=== PATIENT | male | born 1950 | race Caucasian/White ===

== ENCOUNTER 2020-10-26 10:02 | Inpatient (IN) | payer OTHER, SELFPAY ==
[~2020-10-26] VITALS: Ht 190.5 cm; Wt 83.9 kg
[2020-10-26 10:07] VITALS: BP_SYST 140; BP_SYST 155
[2020-10-26] MEDS ORDERED: NACL 0.9% 1,000 ML IV ONE (10:30)
[2020-10-26] MEDS ORDERED: MORPHINE 4 MG INJ. 4 MG/ML VIAL IVP ONE (10:30)
[2020-10-26 10:46] LABS: BASOPHILS % (AUTO) 0.4 % (0.0-2.0); EOSINOPHILS % (AUTO) 0.5 % (0.0-4.0); HEMATOCRIT 40.8 % (36-54); HEMOGLOBIN 14.3 g/dL (14.0-18.0); LYMPHOCYTES # (AUTO) 0.8 K/uL (1.0-5.5); LYMPHOCYTES % (AUTO) 11.2 % (20.5-51.5); MEAN CORPUSCULAR HEMOGLOBIN 33 pg (27-31); MEAN CORPUSCULAR HGB CONC 35 % (32-36); MEAN CORPUSCULAR VOLUME 95 fL (79.0-98.0); MONOCYTES # (AUTO) 0.8 K/uL (0.0-1.0); MONOCYTES % (AUTO) 10.9 % (1.7-9.3); NEUTROPHILS # (AUTO) 5.6 K/uL (1.8-7.7); PLATELET COUNT (AUTO) 183 K/uL (130-430); RED CELL DISTRIBUTION WIDTH 13.4 % (9.0-15.0); WHITE BLOOD COUNT (AUTO) 7.3 K/uL (4.8-10.8)
[2020-10-26 10:50] LABS: ANION GAP 17 (5-15); CHLORIDE 97 mmol/L (98-107); CREATININE 0.66 mg/dL (0.55-1.30); GLUCOSE 109 mg/dL (70-99); SODIUM SERUM 134 mmol/L (136-145); UREA NITROGEN, BLOOD 10 mg/dL (8-21)
[2020-10-26 10:55] LABS: INR 1.2 (0.80-1.20); PROTHROMBIN TIME 12.5 SECS (9.5-12.5)
[2020-10-26 10:56] LABS: ALANINE AMINOTRANSFERASE 90 U/L (12-78); ALBUMIN 2.8 g/dL (3.4-4.8); ASPARTATE AMINOTRANSFERASE 100 U/L (10-37); TOTAL BILIRUBIN 1.9 mg/dL (0.0-1.0)
[2020-10-26] MEDS ORDERED: MORPHINE 4 MG INJ. 4 MG/ML VIAL IVP PRN (11:00)
[2020-10-26 11:02] LABS: ALCOHOL, BLOOD < 3 mg/dL (<10); GFR AFRICAN AMERICAN 153 mL/min (>90)
[2020-10-26] MEDS ORDERED: FOLIC ACID 1 MG, THIAMINE HCL 100 MG, MAGNESIUM SULFATE 2 GM, MVI 10 ML in NACL 0.9% 1,... IV ONE (11:30)
[2020-10-26] MEDS ORDERED: KCL 20 mEq in 100 mL (PREMIX) 100 ML IV ONE (11:30)
[2020-10-26] MEDS ORDERED: THIAMINE HCL 100 MG, MAGNESIUM SULFATE 1 GM in NS 100 ML IV ONE (12:00)
[2020-10-26] MEDS ORDERED: chlordiazePOXIDE HCL 25 MG CAPSULE PO ONE (12:00)
[2020-10-26] MEDS ORDERED: THIAMINE HCL 100 MG, MAGNESIUM SULFATE 1 GM in NS 100 ML IV SCH (12:00)
[2020-10-26] MEDS ORDERED: FOLIC ACID 1 MG, MVI 10 ML in NACL 0.9% 1,000 ML IV ONE (12:00)
[2020-10-26 12:59] LABS: BILIRUBIN,URINE NEGATIVE (NEGATIVE); BLOOD, URINE 2+ (NEGATIVE); COLOR,URINE YELLOW (YELLOW); GLUCOSE,URINE NEGATIVE (NEGATIVE); KETONES,URINE 1+ (NEGATIVE); LEUKOCYTE ESTERASE ,URINE TRACE (NEGATIVE); NITRITE, URINE NEGATIVE (NEGATIVE); PH,URINE 6.5 (5.0-8.0); PROTEIN URINE NEGATIVE (NEGATIVE)
[2020-10-26 13:02] LABS: CLARITY/URINE SLIGHTLY CLOUDY (CLEAR)
[2020-10-26 13:10] LABS: BARBITURATE, URINE NEGATIVE (NEG <=200)
[2020-10-26 13:11] LABS: BENZODIAZEPINE, URINE NEGATIVE (NEG <=150); CANNABINOID, URINE NEGATIVE (NEG <=50); COCAINE, URINE NEGATIVE (NEG <=150); METHAMPHETAMINES SCREEN,URINE NEGATIVE (NEG <=500); OPIATE, URINE POSITIVE (NEG <=100); PHENCYCLIDINE SCREEN,URINE NEGATIVE (NEG <=25); UR TRICYCLIC ANTIDEPRESSANTS NEGATIVE (NEG <=300); URINE AMPHETAMINE NEGATIVE (NEG <=500); URINE METHADONE NEGATIVE (NEG <=200); URINE OXYCODONE SCREEN NEGATIVE (NEG <=100); URINE PROPOXYPHENE SCREEN NEGATIVE (NEG <=300)
[2020-10-26 13:20] LABS: BACTERIA,URINE FEW /HPF (None Seen)
[2020-10-26] MEDS ORDERED: ZOLPIDEM TARTRATE 5 MG TABLET PO PRN (13:45)
[2020-10-26] MEDS ORDERED: NALOXONE HCL 0.4 MG/ML AMP (NARCAN) IVP PRN ×2 (13:45)
[2020-10-26] MEDS ORDERED: MUPIROCIN 2% TOPICAL OINTMENT 22 GM NS PRN (13:45)
[2020-10-26] MEDS ORDERED: DOCUSATE SODIUM 100 MG CAPSULE PO PRN (13:45)
[2020-10-26] MEDS ORDERED: ACETAMINOPHEN 325 MG TABLET PO PRN (13:45)
[2020-10-26] MEDS ORDERED: hydrALAZINE HCL 20 MG/ML VIAL IVP PRN (13:45)
[2020-10-26] MEDS ORDERED: MORPHINE 2 MG/ML INJ. SYRINGE IVP PRN (13:45)
[2020-10-26] MEDS ORDERED: ONDANSETRON HCL 4 MG/2 ML VIAL IVP PRN (13:45)
[2020-10-26 13:54] VITALS: BP_SYST 151
[2020-10-26] MEDS: MORPHINE 2 MG/ML INJ. SYRINGE IVP PRN ×2 (14:38→18:26)
[2020-10-26] MEDS ORDERED: ePHEDrine sulfate 50 MG/ML VIAL IM ONE (15:00)
[2020-10-26] MEDS ORDERED: fentaNYL CITRATE/PF 100 MCG/2 ML AMP IVP ONE (15:00)
[2020-10-26] MEDS ORDERED: BUPIVACAINE /EPINEPHRINE/PF 0.5% 30 ML VIAL INJ ONE (15:00)
[2020-10-26] MEDS ORDERED: KETOROLAC TROMETHAMINE 30 MG VIAL IVP ONE (15:00)
[2020-10-26] MEDS ORDERED: SEVOFLURANE 15 MIN GAS INH ONE (15:00)
[2020-10-26] MEDS ORDERED: MIDAZOLAM HCL 5 MG/5 ML VIAL IVP ONE (15:00)
[2020-10-26] MEDS ORDERED: LR 1,000 ML IV.SOLN IV ONE (15:00)
[2020-10-26] MEDS ORDERED: DEXAMETHASONE SOD PHOSPHATE 4 MG/ML VIAL IVP ONE (15:00)
[2020-10-26] MEDS ORDERED: METOCLOPRAMIDE HCL 10 MG/2 ML VIAL IVP ONE (15:00)
[2020-10-26] MEDS ORDERED: PROPOFOL 200MG/ 20ML VIAL (DIPRIVAN) IV ONE (15:00)
[2020-10-26] MEDS ORDERED: GLYCOPYRROLATE 0.2 MG/ML VIAL IJ ONE (15:00)
[2020-10-26 15:43] VITALS: BP_SYST 151
[2020-10-26] MEDS ORDERED: CYCLOBENZAPRINE HCL 10 MG TABLET (FLEXERIL) PO ONE (15:45)
[2020-10-26 16:05] VITALS: BP_SYST 165
[2020-10-26] MEDS: D5NS 1,000 ML IV SCH (16:08)
[2020-10-26 20:00] VITALS: BP_SYST 154
[2020-10-26] MEDS: CYCLOBENZAPRINE HCL 10 MG TABLET (FLEXERIL) PO SCH (21:44)
[2020-10-26] MEDS: MORPHINE 4 MG INJ. 4 MG/ML VIAL IVP PRN (21:45)
[2020-10-27 00:54] VITALS: BP_SYST 156
[2020-10-27] MEDS: D5NS 1,000 ML IV SCH ×2 (01:18→05:51)
[2020-10-27] MEDS: MORPHINE 4 MG INJ. 4 MG/ML VIAL IVP PRN ×3 (01:45→11:39)
[2020-10-27] MEDS: CYCLOBENZAPRINE HCL 10 MG TABLET (FLEXERIL) PO SCH ×3 (05:47→20:59)
[2020-10-27] MEDS ORDERED: HYDROmorphone 2 MG/ML VIAL IVP ONE (06:30)
[2020-10-27 06:54] LABS: BASOPHILS # (AUTO) 0.1 K/uL (0.0-0.2); BASOPHILS % (AUTO) 0.7 % (0.0-2.0); EOSINOPHILS # (AUTO) 0.1 K/uL (0.0-0.4); HEMOGLOBIN 13.6 g/dL (14.0-18.0); LYMPHOCYTES # (AUTO) 1.2 K/uL (1.0-5.5); LYMPHOCYTES % (AUTO) 16.2 % (20.5-51.5); MEAN CORPUSCULAR HEMOGLOBIN 34 pg (27-31); MEAN CORPUSCULAR HGB CONC 35 % (32-36); MEAN CORPUSCULAR VOLUME 97 fL (79.0-98.0); MONOCYTES % (AUTO) 13.2 % (1.7-9.3); NEUTROPHILS # (AUTO) 5.3 K/uL (1.8-7.7); NEUTROPHILS % (AUTO) 68.9 % (40.0-70.0); PLATELET COUNT (AUTO) 162 K/uL (130-430); RED BLOOD CELL COUNT(AUTO) 4.03 MIL/uL (4.2-6.2); RED CELL DISTRIBUTION WIDTH 13.6 % (9.0-15.0); WHITE BLOOD COUNT (AUTO) 7.6 K/uL (4.8-10.8)
[2020-10-27] MEDS ORDERED: HYDROmorphone 2 MG/ML VIAL ONE (07:04)
[2020-10-27 07:30] LABS: CALCIUM 7.3 mg/dL (8.4-11.0); CREATININE 0.51 mg/dL (0.55-1.30); POTASSIUM 3.3 mmol/L (3.5-5.1)
[2020-10-27 07:45] VITALS: BP_SYST 135
[2020-10-27] MEDS ORDERED: METOPROLOL TARTRATE 5 MG/5 ML VIAL IVP ONE (07:45)
[2020-10-27] MEDS ORDERED: FOLIC ACID 1 MG, THIAMINE HCL 100 MG, MAGNESIUM SULFATE 1 GM, MVI 10 ML in NACL 0.9% 1,... IV ONE (08:15)
[2020-10-27 08:32] VITALS: BP_SYST 109
[2020-10-27] MEDS: MAGNESIUM SULFATE 50 ML IV PRN (09:04)
[2020-10-27] MEDS ORDERED: chlordiazePOXIDE HCL 25 MG CAPSULE PO ONE (09:30)
[2020-10-27] MEDS ORDERED: AMIODARONE HCL 200 MG TABLET PO ONE (09:30)
[2020-10-27] MEDS: FOLIC ACID 1 MG TABLET PO SCH (09:35)
[2020-10-27] MEDS: POTASSIUM CHLORIDE 20 MEQ TAB.PRT.SR PO PRN (09:36)
[2020-10-27] MEDS: THIAMINE HCL 100 MG TABLET PO SCH (09:36)
[2020-10-27] MEDS ORDERED: MAGNESIUM SULFATE 50 ML IV ONE (09:45)
[2020-10-27] MEDS ORDERED: THIAMINE HCL 100 MG in NS 100 ML IV SCH (09:45)
[2020-10-27] MEDS ORDERED: FOLIC ACID 1 MG, MVI 10 ML in NACL 0.9% 1,000 ML IV SCH (09:45)
[2020-10-27] MEDS ORDERED: MAGNESIUM SULFATE 4 GM in D5W 250 ML IV ONE (10:00)
[2020-10-27] MEDS: cefTRIAXone 1 GM in D5W 50 ML IV SCH (10:12)
[2020-10-27 11:27] VITALS: BP_SYST 131
[2020-10-27] MEDS: AMIODARONE HCL 200 MG TABLET PO SCH ×2 (13:29→21:00)
[2020-10-27] MEDS: chlordiazePOXIDE HCL 25 MG CAPSULE PO SCH ×2 (14:48→20:59)
[2020-10-27 15:08] LABS: CALCIUM 7.7 mg/dL (8.4-11.0); CREATININE 0.54 mg/dL (0.55-1.30); POTASSIUM 3.3 mmol/L (3.5-5.1)
[2020-10-27 15:56] VITALS: BP_SYST 135
[2020-10-27] MEDS ORDERED: METOPROLOL TARTRATE 25 MG TABLET PO ONE (16:15)
[2020-10-27 20:54] VITALS: BP_SYST 123
[2020-10-27] MEDS: METOPROLOL TARTRATE 25 MG TABLET PO SCH (20:59)
[2020-10-28 01:02] VITALS: BP_SYST 133
[2020-10-28] MEDS: LORazepam 2 MG/ML VIAL IVP PRN ×3 (01:13→20:21)
[2020-10-28] MEDS: AMIODARONE HCL 200 MG TABLET PO SCH ×3 (06:00→21:20)
[2020-10-28] MEDS: CYCLOBENZAPRINE HCL 10 MG TABLET (FLEXERIL) PO SCH ×3 (06:00→21:18)
[2020-10-28] MEDS: D5NS 1,000 ML IV SCH ×2 (06:15→20:19)
[2020-10-28 06:50] LABS: BASOPHILS % (AUTO) 0.4 % (0.0-2.0); EOSINOPHILS % (AUTO) 0.1 % (0.0-4.0); HEMATOCRIT 39.5 % (36-54); HEMOGLOBIN 13.5 g/dL (14.0-18.0); MEAN CORPUSCULAR HEMOGLOBIN 33 pg (27-31); MEAN CORPUSCULAR HGB CONC 34 % (32-36); MEAN CORPUSCULAR VOLUME 98 fL (79.0-98.0); MONOCYTES # (AUTO) 1.1 K/uL (0.0-1.0); MONOCYTES % (AUTO) 11.8 % (1.7-9.3); NEUTROPHILS # (AUTO) 7.2 K/uL (1.8-7.7); NEUTROPHILS % (AUTO) 76.7 % (40.0-70.0); PLATELET COUNT (AUTO) 154 K/uL (130-430); RED BLOOD CELL COUNT(AUTO) 4.04 MIL/uL (4.2-6.2); RED CELL DISTRIBUTION WIDTH 13.3 % (9.0-15.0); WHITE BLOOD COUNT (AUTO) 9.4 K/uL (4.8-10.8)
[2020-10-28 07:13] LABS: ALBUMIN 2.3 g/dL (3.4-4.8); BILIRUBIN,DIRECT 1.1 mg/dL (0.0-0.3); CALCIUM 7.4 mg/dL (8.4-11.0); CREATININE 0.49 mg/dL (0.55-1.30); POTASSIUM 3.6 mmol/L (3.5-5.1); THYROID STIMULATING HORMONE 1.16 uIu/mL (0.36-3.74); TOTAL BILIRUBIN 1.9 mg/dL (0.0-1.0)
[2020-10-28 07:58] VITALS: BP_SYST 137
[2020-10-28] MEDS: FOLIC ACID 1 MG TABLET PO SCH (09:00)
[2020-10-28] MEDS: chlordiazePOXIDE HCL 25 MG CAPSULE PO SCH ×3 (09:00→20:18)
[2020-10-28] MEDS: THIAMINE HCL 100 MG TABLET PO SCH (09:00)
[2020-10-28] MEDS ORDERED: AMIODARONE HCL 200 MG TABLET PO ONE (09:45)
[2020-10-28] MEDS: METOPROLOL TARTRATE 25 MG TABLET PO SCH ×2 (09:53→20:18)
[2020-10-28] MEDS: cefTRIAXone 1 GM in D5W 50 ML IV SCH (09:57)
[2020-10-28 11:52] VITALS: BP_SYST 142
[2020-10-28] MEDS: MORPHINE 4 MG INJ. 4 MG/ML VIAL IVP PRN (14:48)
[2020-10-28 15:27] VITALS: BP_SYST 137
[2020-10-28] MEDS ORDERED: METOPROLOL TARTRATE 25 MG TABLET PO ONE (17:30)
[2020-10-28 20:00] VITALS: BP_SYST 126
[2020-10-28] MEDS ORDERED: METOPROLOL TARTRATE 5 MG/5 ML VIAL IVP ONE (22:00)
[2020-10-29] VITALS (7 sets, daily range): BP systolic 107–141
[2020-10-29] MEDS ORDERED: METOPROLOL TARTRATE 5 MG/5 ML VIAL IVP ONE (00:30)
[2020-10-29] MEDS: LORazepam 2 MG/ML VIAL IVP PRN ×2 (00:41→04:37)
[2020-10-29] MEDS: MORPHINE 4 MG INJ. 4 MG/ML VIAL IVP PRN ×2 (04:40→15:25)
[2020-10-29] MEDS: CYCLOBENZAPRINE HCL 10 MG TABLET (FLEXERIL) PO SCH ×3 (05:53→21:49)
[2020-10-29] MEDS: AMIODARONE HCL 200 MG TABLET PO SCH ×3 (05:54→21:49)
[2020-10-29 06:47] LABS: BASOPHILS % (AUTO) 0.3 % (0.0-2.0); HEMATOCRIT 38.7 % (36-54); HEMOGLOBIN 13.2 g/dL (14.0-18.0); LYMPHOCYTES # (AUTO) 1.3 K/uL (1.0-5.5); LYMPHOCYTES % (AUTO) 11.8 % (20.5-51.5); MEAN CORPUSCULAR HEMOGLOBIN 33 pg (27-31); MEAN CORPUSCULAR HGB CONC 34 % (32-36); MEAN CORPUSCULAR VOLUME 98 fL (79.0-98.0); MONOCYTES # (AUTO) 1.4 K/uL (0.0-1.0); MONOCYTES % (AUTO) 13.1 % (1.7-9.3); NEUTROPHILS # (AUTO) 8.1 K/uL (1.8-7.7); NEUTROPHILS % (AUTO) 74.8 % (40.0-70.0); PLATELET COUNT (AUTO) 154 K/uL (130-430); RED BLOOD CELL COUNT(AUTO) 3.97 MIL/uL (4.2-6.2); RED CELL DISTRIBUTION WIDTH 13.5 % (9.0-15.0); WHITE BLOOD COUNT (AUTO) 10.8 K/uL (4.8-10.8)
[2020-10-29 07:04] LABS: CALCIUM 7.6 mg/dL (8.4-11.0); CREATININE 0.65 mg/dL (0.55-1.30); POTASSIUM 3.4 mmol/L (3.5-5.1)
[2020-10-29] MEDS: FOLIC ACID 1 MG TABLET PO SCH (09:04)
[2020-10-29] MEDS: THIAMINE HCL 100 MG TABLET PO SCH (09:04)
[2020-10-29] MEDS: chlordiazePOXIDE HCL 25 MG CAPSULE PO SCH ×3 (09:04→21:48)
[2020-10-29] MEDS: METOPROLOL TARTRATE 25 MG TABLET PO SCH ×2 (09:05→21:49)
[2020-10-29] MEDS: cefTRIAXone 1 GM in D5W 50 ML IV SCH (09:06)
[2020-10-29] MEDS: POTASSIUM CHLORIDE 20 MEQ TAB.PRT.SR PO PRN (12:26)
[2020-10-29] MEDS: MAGNESIUM SULFATE 50 ML IV PRN (12:26)
[2020-10-29] MEDS: D5NS 1,000 ML IV SCH (12:29)
[2020-10-29] MEDS ORDERED: POTASSIUM CHLORIDE 40 MEQ in NS 250 ML IV PRN (13:30)
[2020-10-29] MEDS ORDERED: IPRATROPIUM/ALBUTEROL SULFATE 3 ML AMPUL.NEB (DUONEB) INH ONE (14:30)
[2020-10-29] MEDS ORDERED: IPRATROPIUM/ALBUTEROL SULFATE 3 ML AMPUL.NEB (DUONEB) INH PRN (14:30)
[2020-10-29] MEDS: AZITHROMYCIN 500 MG in NS 250 ML IV SCH (15:30)
[2020-10-30 00:32] VITALS: BP_SYST 111
[2020-10-30] MEDS: MORPHINE 4 MG INJ. 4 MG/ML VIAL IVP PRN ×2 (00:44→19:58)
[2020-10-30] MEDS: D5NS 1,000 ML IV SCH ×2 (00:49→16:00)
[2020-10-30] MEDS: CYCLOBENZAPRINE HCL 10 MG TABLET (FLEXERIL) PO SCH ×3 (06:10→22:29)
[2020-10-30] MEDS: AMIODARONE HCL 200 MG TABLET PO SCH ×3 (06:10→22:29)
[2020-10-30 07:00] LABS: BASOPHILS # (AUTO) 0.1 K/uL (0.0-0.2); BASOPHILS % (AUTO) 0.8 % (0.0-2.0); EOSINOPHILS # (AUTO) 0.1 K/uL (0.0-0.4); EOSINOPHILS % (AUTO) 0.8 % (0.0-4.0); HEMATOCRIT 35.2 % (36-54); HEMOGLOBIN 11.9 g/dL (14.0-18.0); LYMPHOCYTES # (AUTO) 1.1 K/uL (1.0-5.5); LYMPHOCYTES % (AUTO) 15.5 % (20.5-51.5); MEAN CORPUSCULAR HEMOGLOBIN 33 pg (27-31); MEAN CORPUSCULAR HGB CONC 34 % (32-36); MEAN CORPUSCULAR VOLUME 98 fL (79.0-98.0); MONOCYTES # (AUTO) 0.9 K/uL (0.0-1.0); MONOCYTES % (AUTO) 12.5 % (1.7-9.3); NEUTROPHILS # (AUTO) 5.1 K/uL (1.8-7.7); NEUTROPHILS % (AUTO) 70.4 % (40.0-70.0); PLATELET COUNT (AUTO) 122 K/uL (130-430); RED BLOOD CELL COUNT(AUTO) 3.58 MIL/uL (4.2-6.2); RED CELL DISTRIBUTION WIDTH 13.8 % (9.0-15.0); WHITE BLOOD COUNT (AUTO) 7.2 K/uL (4.8-10.8)
[2020-10-30 07:15] LABS: ALBUMIN 1.8 g/dL (3.4-4.8); CALCIUM 7.5 mg/dL (8.4-11.0); CREATININE 0.53 mg/dL (0.55-1.30)
[2020-10-30] MEDS: IPRATROPIUM/ALBUTEROL SULFATE 3 ML AMPUL.NEB (DUONEB) INH SCH ×3 (07:32→18:00)
[2020-10-30] MEDS: FOLIC ACID 1 MG TABLET PO SCH (08:59)
[2020-10-30] MEDS: THIAMINE HCL 100 MG TABLET PO SCH (08:59)
[2020-10-30] MEDS: METOPROLOL TARTRATE 25 MG TABLET PO SCH ×2 (08:59→22:28)
[2020-10-30] MEDS: chlordiazePOXIDE HCL 25 MG CAPSULE PO SCH ×3 (09:06→21:00)
[2020-10-30] MEDS: cefTRIAXone 1 GM in D5W 50 ML IV SCH (09:08)
[2020-10-30 11:34] VITALS: BP_SYST 142
[2020-10-30] MEDS: POTASSIUM CHLORIDE 20 MEQ TAB.PRT.SR PO PRN (14:04)
[2020-10-30] MEDS: AZITHROMYCIN 500 MG in NS 250 ML IV SCH (14:05)
[2020-10-30 15:29] VITALS: BP_SYST 122
[2020-10-31 00:52] VITALS: BP_SYST 138
[2020-10-31] MEDS: MORPHINE 4 MG INJ. 4 MG/ML VIAL IVP PRN ×3 (01:29→13:27)
[2020-10-31] MEDS: IPRATROPIUM/ALBUTEROL SULFATE 3 ML AMPUL.NEB (DUONEB) INH SCH ×3 (03:03→13:12)
[2020-10-31] MEDS: D5NS 1,000 ML IV SCH ×2 (05:31→21:01)
[2020-10-31] MEDS: CYCLOBENZAPRINE HCL 10 MG TABLET (FLEXERIL) PO SCH ×3 (05:40→20:58)
[2020-10-31] MEDS: AMIODARONE HCL 200 MG TABLET PO SCH ×3 (05:40→20:58)
[2020-10-31 06:29] LABS: BASOPHILS # (AUTO) 0.1 K/uL (0.0-0.2); BASOPHILS % (AUTO) 0.8 % (0.0-2.0); EOSINOPHILS # (AUTO) 0.2 K/uL (0.0-0.4); EOSINOPHILS % (AUTO) 1.8 % (0.0-4.0); HEMATOCRIT 37.5 % (36-54); HEMOGLOBIN 12.4 g/dL (14.0-18.0); MEAN CORPUSCULAR HEMOGLOBIN 33 pg (27-31); MEAN CORPUSCULAR HGB CONC 33 % (32-36); MEAN CORPUSCULAR VOLUME 100 fL (79.0-98.0); MONOCYTES # (AUTO) 0.8 K/uL (0.0-1.0); MONOCYTES % (AUTO) 9.8 % (1.7-9.3); NEUTROPHILS # (AUTO) 6.4 K/uL (1.8-7.7); NEUTROPHILS % (AUTO) 75.6 % (40.0-70.0); PLATELET COUNT (AUTO) 138 K/uL (130-430); RED BLOOD CELL COUNT(AUTO) 3.77 MIL/uL (4.2-6.2); WHITE BLOOD COUNT (AUTO) 8.4 K/uL (4.8-10.8)
[2020-10-31 06:46] LABS: CALCIUM 7.9 mg/dL (8.4-11.0); CREATININE 0.49 mg/dL (0.55-1.30); POTASSIUM 3.1 mmol/L (3.5-5.1)
[2020-10-31 08:00] VITALS: BP_SYST 146
[2020-10-31] MEDS: FOLIC ACID 1 MG TABLET PO SCH (09:17)
[2020-10-31] MEDS: METOPROLOL TARTRATE 25 MG TABLET PO SCH ×2 (09:17→20:50)
[2020-10-31] MEDS: THIAMINE HCL 100 MG TABLET PO SCH (09:17)
[2020-10-31] MEDS: chlordiazePOXIDE HCL 25 MG CAPSULE PO SCH ×2 (09:18→20:50)
[2020-10-31] MEDS: cefTRIAXone 1 GM in D5W 50 ML IV SCH (09:45)
[2020-10-31 12:00] VITALS: BP_SYST 133
[2020-10-31] MEDS ORDERED: POTASSIUM CHLORIDE 40 MEQ, LIDOCAINE JECT 2% PF 100 MG 25 MG in NS 250 ML IV ONE (12:00)
[2020-10-31 13:11] VITALS: BP_SYST 135
[2020-10-31] MEDS ORDERED: LR 1,000 ML IV SCH (16:45)
[2020-10-31] MEDS ORDERED: HYDROmorphone 1 MG/ML INJ. CARTRIDGE IVP PRN (16:45)
[2020-10-31] MEDS ORDERED: HYDROmorphone 2 MG/ML VIAL IVP PRN (16:45)
[2020-10-31] MEDS ORDERED: MEPERIDINE HCL/PF 25 MG/ML DISP.SYRIN IVP PRN (16:45)
[2020-10-31] MEDS ORDERED: POLYMYXIN 500,000/BACIT.10,000 UNITS in NS IRR 1 L IR ONE (17:00)
[2020-10-31] MEDS ORDERED: ACETAMINOPHEN I.V. 1000 MG 100 ML IV ONE (17:26)
[2020-10-31] MEDS ORDERED: ONDANSETRON 4 MG ODT TAB PO PRN (19:00)
[2020-10-31] MEDS ORDERED: COMMUNICATION ORDER XX ONE (20:00)
[2020-10-31] MEDS: DOCUSATE SODIUM 100 MG CAPSULE PO SCH (20:50)
[2020-10-31] MEDS: AZITHROMYCIN 500 MG in NS 250 ML IV SCH (20:50)
[2020-10-31] MEDS ORDERED: ENOXAPARIN SODIUM 40 MG/0.4 ML SYRINGE SUBCUT ONE (21:00)
[2020-10-31] MEDS: CEFAZOLIN 1 GM IVPB PREMIX 50 ML IV SCH (21:01)
[2020-11-01 00:04] VITALS: BP_SYST 121
[2020-11-01] MEDS: AMIODARONE HCL 200 MG TABLET PO SCH (06:03)
[2020-11-01] MEDS: CYCLOBENZAPRINE HCL 10 MG TABLET (FLEXERIL) PO SCH ×2 (06:03→14:02)
[2020-11-01] MEDS: CEFAZOLIN 1 GM IVPB PREMIX 50 ML IV SCH ×3 (06:04→17:30)
[2020-11-01] MEDS ORDERED: CEFAZOLIN 1 GM IVPB PREMIX 50 ML IV SCH (06:15)
[2020-11-01 07:11] LABS: BASOPHILS % (AUTO) 0.1 % (0.0-2.0); HEMATOCRIT 36.6 % (36-54); HEMOGLOBIN 12.2 g/dL (14.0-18.0); LYMPHOCYTES # (AUTO) 0.6 K/uL (1.0-5.5); LYMPHOCYTES % (AUTO) 9.2 % (20.5-51.5); MEAN CORPUSCULAR HEMOGLOBIN 33 pg (27-31); MEAN CORPUSCULAR HGB CONC 34 % (32-36); MEAN CORPUSCULAR VOLUME 100 fL (79.0-98.0); MONOCYTES # (AUTO) 0.2 K/uL (0.0-1.0); MONOCYTES % (AUTO) 3.6 % (1.7-9.3); NEUTROPHILS # (AUTO) 5.7 K/uL (1.8-7.7); NEUTROPHILS % (AUTO) 87.1 % (40.0-70.0); PLATELET COUNT (AUTO) 139 K/uL (130-430); RED BLOOD CELL COUNT(AUTO) 3.66 MIL/uL (4.2-6.2); RED CELL DISTRIBUTION WIDTH 13.8 % (9.0-15.0); WHITE BLOOD COUNT (AUTO) 6.6 K/uL (4.8-10.8)
[2020-11-01 07:15] VITALS: BP_SYST 135
[2020-11-01] MEDS: IPRATROPIUM/ALBUTEROL SULFATE 3 ML AMPUL.NEB (DUONEB) INH SCH ×3 (07:18→19:35)
[2020-11-01 07:54] LABS: CALCIUM 7.7 mg/dL (8.4-11.0); CREATININE 0.48 mg/dL (0.55-1.30)
[2020-11-01 08:00] VITALS: BP_SYST 135
[2020-11-01] MEDS: THIAMINE HCL 100 MG TABLET PO SCH (08:43)
[2020-11-01] MEDS: FOLIC ACID 1 MG TABLET PO SCH (08:43)
[2020-11-01] MEDS: chlordiazePOXIDE HCL 25 MG CAPSULE PO SCH ×2 (08:44→14:06)
[2020-11-01] MEDS: METOPROLOL TARTRATE 25 MG TABLET PO SCH (08:44)
[2020-11-01] MEDS: DOCUSATE SODIUM 100 MG CAPSULE PO SCH (08:44)
[2020-11-01] MEDS: cefTRIAXone 1 GM in D5W 50 ML IV SCH (09:59)
[2020-11-01] MEDS ORDERED: FLUCONAZOLE 200 mg/ NS 100 ML IV SCH (10:00)
[2020-11-01] MEDS ORDERED: ENOXAPARIN SODIUM 40 MG/0.4 ML SYRINGE SUBCUT SCH (14:00)
[2020-11-01] MEDS: AZITHROMYCIN 500 MG in NS 250 ML IV SCH (14:05)
[2020-11-01 16:34] LABS: BASOPHILS % (AUTO) 0.1 % (0.0-2.0); HEMATOCRIT 35.8 % (36-54); HEMOGLOBIN 11.6 g/dL (14.0-18.0); LYMPHOCYTES # (AUTO) 0.9 K/uL (1.0-5.5); LYMPHOCYTES % (AUTO) 8.8 % (20.5-51.5); MEAN CORPUSCULAR HEMOGLOBIN 32 pg (27-31); MEAN CORPUSCULAR HGB CONC 32 % (32-36); MEAN CORPUSCULAR VOLUME 100 fL (79.0-98.0); MONOCYTES # (AUTO) 0.8 K/uL (0.0-1.0); MONOCYTES % (AUTO) 7.6 % (1.7-9.3); NEUTROPHILS # (AUTO) 8.5 K/uL (1.8-7.7); NEUTROPHILS % (AUTO) 83.5 % (40.0-70.0); PLATELET COUNT (AUTO) 173 K/uL (130-430); RED BLOOD CELL COUNT(AUTO) 3.59 MIL/uL (4.2-6.2); RED CELL DISTRIBUTION WIDTH 13.8 % (9.0-15.0); WHITE BLOOD COUNT (AUTO) 10.2 K/uL (4.8-10.8)
[2020-11-01] MEDS ORDERED: AMIODARONE HCL 200 MG TABLET PO SCH (18:00)
== END 2020-11-01 21:10 | DRG 480 ==
LOC: SED 10:02 → STU 10:59
PROVIDERS: ADMIT General Practice; ATTEND General Practice
PROC: 0QS704Z Reposition Left Upper Femur with Internal Fixation Device, Open Approach (ICD-10-PCS; principal; 2020-10-27)
DX: S72.142A Displaced intertrochanteric fracture of left femur, initial encounter for closed fracture (principal); B37.1 Pulmonary candidiasis; J96.01 Acute respiratory failure with hypoxia; J18.9 Pneumonia, unspecified organism; E87.1 Hypo-osmolality and hyponatremia; E44.0 Moderate protein-calorie malnutrition; F10.239 Alcohol dependence with withdrawal, unspecified; N39.0 Urinary tract infection, site not specified; I48.20 Chronic atrial fibrillation, unspecified; I42.9 Cardiomyopathy, unspecified; R65.10 Systemic inflammatory response syndrome (SIRS) of non-infectious origin without acute organ dysfunction; E87.6 Hypokalemia; E83.42 Hypomagnesemia; E83.51 Hypocalcemia; R74.01 Elevation of levels of liver transaminase levels; Y90.9 Presence of alcohol in blood, level not specified; K76.0 Fatty (change of) liver, not elsewhere classified; Z20.822 Contact with and (suspected) exposure to COVID-19; I10 Essential (primary) hypertension; W01.0XXA Fall on same level from slipping, tripping and stumbling without subsequent striking against object, initial encounter; Z68.23 Body mass index [BMI] 23.0-23.9, adult; Y93.89 Activity, other specified; Y99.8 Other external cause status; Z79.01 Long term (current) use of anticoagulants; Y92.009 Unspecified place in unspecified non-institutional (private) residence as the place of occurrence of the external cause; Z82.49 Family history of ischemic heart disease and other diseases of the circulatory system
CPT/HCPCS: 36415; 70450-TC; 71045; 73502; 73700-TC; 76000; 76376; 76700-TC; 80048; 80053; 80307; 81000; 82140; 82248; 82962; 83036; 83735; 84443; 85025; 85610-TC; 86886; 86900; 86901; 87070-TC; 87081; 87086; 87205-TC; 93005; 93306; 94010; 94640; 94760; 96361; 96365; 96366; 96368; 96375; 97163-GP; 97530-GP; 99285; C1713; C1776; G0378; G0482; J0131; J0360; J0456; J0690; J0696; J1100; J1170; J1450; J1650; J1885; J2060; J2250; J2270; J2704; J2765; J3010; J3411; J3475; J3480; J3490; J7030; J7050; J7060; J7120